=== PATIENT | male | born 1945 | race Caucasian/White ===

== ENCOUNTER 2024-02-10 17:20 | Emergency (ER) | payer OTHER, SELFPAY ==
[2024-02-10 17:21] VITALS: BP 165/89
--- NOTE | 2024-02-10 17:48 | ED.SKININJ ---
HPI-Injury
General
Chief Complaint: Skin Surface Trauma
Source: patient
Exam Limitations: none
Time Seen by Provider: 02/10/24 17:30
Nursing documentation reviewed up to this point in time: agreed with
Travel History
Have you had any contact with someone who has COVID-19?: No
Do you have any symptoms of coronavirus? Fever > 100 degrees, chills, cough, shortness of breath, sore throat, loss of taste or smell, muscle aches, or headache?: No
History of Present Illness-Injury
Is this injury a work related problem?: No
Is pt an associate of [facility]?: No
Initial Injury comments:
Accidentally cut hand while sharpening knife. Sustained laceration to left lateral hand. Injury occurred just [employer]
Past History
Past History
ED Past Medical History: Cancer (Bladder polyp) and Hypercholesterolemia
ED Past Surgical History: Other (Hernia repair)
Social History
Tobacco: Smoker (Cigars)
Alcohol: Occasional
Drug: None
Personal:
Living: with family
Review of Systems
Review of Systems
Allergies reviewed?: Yes
All Other Systems: ROS reviewed and negative except as documented in HPI and ROS
Constitutional: Reports no symptoms
Musculoskeletal: Reports no symptoms
Skin: Reports other (laceration to left lateral hand)
Neurological: Reports no symptoms
Psychiatric: Reports no symptoms
Skin Exam
Laceration
Left Lateral Hand:
Length in cm: 3
Orientation: horizontal
Type of Laceration: simple
Any active bleeding?: low grade venous oozing
Distal skin color and temperature: normal-warm & good color
Normal distal neurovascular exam: Yes
Range of motion: full
Phy Exam
General Physical Exam
General Presentation: well appearing and no apparent distress
General age: appears stated age
General Skin: warm and dry
General Habitus: normal
General Mental: alert
Musculoskeletal Exam
Musculoskeletal Exam: full ROM and neuro vasc intact
Skin Exam
Skin Exam: normal color, warm/dry and no rash
Psychiatric Exam
Psychiatric Exam: normal mood/affect
Course
Orders/Labs/Results
Orders:
Orders
02/10/24 17:52
Tetanus/Diphth/Acelpertussis [Adacel] 0.5 ml IM .ONCE ONE
Vital Signs
Initial and Last Documented VS:
Initial Vital Signs
Temp Pulse Resp BP Pulse Ox
99.1 F 83 16 165/89 98
02/10/24 17:21 02/10/24 17:21 02/10/24 17:21 02/10/24 17:21 02/10/24 17:21
Last Documented Vital Signs
Temp Pulse Resp BP Pulse Ox
99.1 F 83 16 165/89 98
02/10/24 17:21 02/10/24 17:21 02/10/24 17:21 02/10/24 17:21 02/10/24 17:21
Procedures
Laceration Closure
Left Lateral Hand:
Status of Wound: clean
Description of Wound Edges: sharp
Preparation: cleaned with saline
Anesthesia: 1% Lidocaine with epi
Revision/Debridement: routine- no revision
Wound exploration: explored to base- no FB
Type of Closure: single layer closure
Skin Closure Material: 5-0 prolene
*Critical Care Note
Total Time (30-74mins, 75-104mins- exclusive of procedures): Not Applicable
ED Attending Note
-
Portions of this chart may have been created with voice recognition software.� Occasional wrong word or��sound alike� substitutions may have occurred due to the inherent limitations of voice recognition software.
Discharge Plan
Departure
Patient Disposition: Home (Routine Discharge)
Date of Disposition: 02/10/24
Time of Disposition: 17:47
Patient with high blood pressure during this ER visit?: No
Condition: Good
Covid-19: Not Applicable
Discharge Problem:
Hand laceration
Instructions: Laceration Repair With Stitches (DC)
Prescriptions:
No Action
finasteride 5 MG tablet
5 mg PO HS
cholecalciferol (vitamin D3) [Vitamin D3] 125 mcg (5,000 unit) Tablet
125 mcg PO HS
zinc acetate 50 mg (zinc) Capsule
50 mg PO HS
Activity Restrictions/Additional Instructions:
Sutures can be removed in 7-10 days by your family doctor.
Interventions
Interventions:
*Risk Screen - Suicide Last Done: 02/10/24 17:32
*General Assessment Last Done: 02/10/24 17:32
*Neglect/Abuse Screening Last Done: 02/10/24 17:32
ED- Fall Risk Assessment Last Done: 02/10/24 17:33
*ED COVID-19 Vaccine History Last Done: 02/10/24 17:21
ED-Skin Assessment Last Done: 02/10/24 17:33
Discharge Date and Time
Print Language: INDIAN
[2024-02-10] MEDS: ADACEL 0.5 ML IM (17:55)
== END 2024-02-10 18:03 | disposition home or self-care (01) ==
LOC: EMR 17:20
PROVIDERS: EMERGENCY PHYSICIAN Emergency Medicine; FAMILY PHYSICIAN Internal Medicine Geriatric Medicine
DX: S61.412A Laceration without foreign body of left hand, initial encounter (principal); W26.0XXA Contact with knife, initial encounter; Z23 Encounter for immunization; E78.00 Pure hypercholesterolemia, unspecified; F17.290 Nicotine dependence, other tobacco product, uncomplicated; Z88.8 Allergy status to other drugs, medicaments and biological substances; Z85.51 Personal history of malignant neoplasm of bladder; Z85.828 Personal history of other malignant neoplasm of skin; Z87.01 Personal history of pneumonia (recurrent)
CPT/HCPCS: 99282; 90471; 12002; 90715

== ENCOUNTER 2024-05-22 06:27 | Day surgery (SDC) | payer OTHER, SELFPAY ==
[2024-05-20 09:23] LABS: Hematocrit 45.5 % (39.0-52.0); Mean Corp Hgb Conc. 35.2 g/dL (33.0-37.0); Mean Corpuscular Hgb 31.9 pg (27.0-31.0); Mean Corpuscular Volume 90.8 fL (80.0-94.0); Platelet Count 230 10^3/uL (130-400); Red Blood Cell Count 5.01 10^6/uL (4.70-6.10); Red Cell Dist. Width 13.4 % (11.5-14.5); White Blood Cell Count 10.5 10^3/uL (4.8-10.8)
[2024-05-20 09:48] VITALS: BMI 27.8
[2024-05-20 10:02] LABS: Blood Urea Nitrogen 20 mg/dl (9-20); Calcium 9.4 mg/dl (8.4-10.2); Carbon Dioxide 30 mmol/L (22-30); Chloride 102 mmol/L (98-107); Estimated Creatinine Clearance 57 ml/min; Glucose 80 mg/dl (70-99); Potassium 4.6 mmol/L (3.5-5.1); Sodium 141 mmol/L (135-145); eGFR > 60.00
[2024-05-20 10:19] LABS: Urine Albumin Trace (Neg - Trace); Urine Bilirubin 1+ (Negative); Urine Character Clear (Clear); Urine Color Yellow; Urine Glucose Negative (Negative); Urine Ketone Negative (Negative); Urine Leukocyte Negative (Negative); Urine Nitrite Negative (Negative); Urine Occult Blood Negative (Negative); Urine Urobilinogen 1+ (Neg - 1+)
[2024-05-20 11:21] LABS: APTT 30.9 Sec (23.4-35.0); INR 0.97; PT 12.6 Sec (11.4-14.6)
[2024-05-22] VITALS (10 sets, daily range): BP systolic 109–145; BP diastolic 65–92; BMI 27.8
[2024-05-22] MEDS: CYSVIEW KIT 100 MG INTRAVES (09:05)
[2024-05-22] MEDS: SYRINGE NON-PUMP 50 MG IRRIG ×2 (11:10→11:30)
[2024-05-22] MEDS: SYRINGE NON-PUMP 50 ML IRRIG ×2 (11:10→11:30)
[2024-05-22] MEDS: Pyridium 200 MG PO (12:11)
== END 2024-05-22 13:40 | disposition home or self-care (01) ==
LOC: SDS 06:27
PROVIDERS: ATTENDING PHYSICIAN Specialist; FAMILY PHYSICIAN Internal Medicine Geriatric Medicine
PROC: 0TBB8ZZ Excision of Bladder, Via Natural or Artificial Opening Endoscopic (ICD-10-PCS; 2024-05-22)
DX: D30.3 Benign neoplasm of bladder (principal); Z85.51 Personal history of malignant neoplasm of bladder
CPT/HCPCS: 52235; 88307; 36415; 80048; 81003; 85027; 85610; 85730; 93005; A9589; J9201

== ENCOUNTER 2025-07-04 05:23 | Inpatient (IN) | payer OTHER, SELFPAY ==
[2025-07-03 23:34] VITALS: BP 168/108
[2025-07-04] VITALS (11 sets, daily range): BP systolic 110–177; BP diastolic 70–104; BMI 26.8; BMI 28.5
[2025-07-04 00:29] LABS: ALT (SGPT) 25 U/L (0-50); AST (SGOT) 24 U/L (17-59); Albumin 4.3 g/dl (3.5-5.0); Alkaline Phosphatase 72 U/L (38-126); Blood Urea Nitrogen 26 mg/dl (9-20); Calcium 9.1 mg/dl (8.4-10.2); Carbon Dioxide 28 mmol/L (22-30); Chloride 107 mmol/L (98-107); Glucose 132 mg/dl (70-99); Potassium 4.7 mmol/L (3.5-5.1); Sodium 137 mmol/L (135-145); Total Protein 7.4 g/dl (6.3-8.2); eGFR > 60.00
[2025-07-04 00:55] LABS: Hematocrit 47.1 % (39.0-52.0); Hemoglobin 15.6 g/dL (13.0-18.0); Mean Corp Hgb Conc. 33.1 g/dL (33.0-37.0); Mean Corpuscular Volume 95.2 fL (80.0-94.0); Nucleated Red Blood Cells % 0 % (-); Platelet Count 210 10^3/uL (130-400); Red Cell Dist. Width 13.0 % (11.5-14.5)
[2025-07-04 01:14] LABS: Troponin I 0.032 ng/ml
--- NOTE | 2025-07-04 02:36 | ED.GENMED ---
History of Present Illness
General
Chief Complaint: Chest Pain
Source: patient
Exam Limitations: none
Time Seen by Provider: 07/04/25 01:51
Nursing documentation reviewed up to this point in time: agreed with
History of Present Illness
History of Present Illness:
79-year-old male with past medical history as noted presents to the ER for evaluation of chest pain. Patient reports onset at 10 PM while he was at rest and it lasted for about 2 hours and seems to have resolved. He says that it was a pressure
sensation substernal. He says that initially after onset he started to drink some water and pace around and he began belching quite heavily and had some loose stools. He took full dose aspirin. He says that by the time of arrival here it seemed
to have resolved, total duration roughly 2 hours. Currently he is asymptomatic here in the ER. He says he did not have any associated shortness of breath, nausea, vomiting, diaphoresis, dizziness. He says he has never had similar symptoms in the
past. He denies any known history of heart issues. He does make note that tonight he had some Malay food and he says that one of the egg rolls he ate 'tasted funny.'
Past History
Past History
ED Past Medical History: Cancer (Bladder polyp) and Hypercholesterolemia
ED Past Surgical History: Other (Hernia repair)
Social History
Tobacco: Smoker (Cigars)
Alcohol: Occasional
Drug: None
Personal:
Living: with family
Review of Systems
Review of Systems
All Other Systems: ROS reviewed and negative except as documented in HPI and ROS
Constitutional: Denies fever
Respiratory: Denies trouble breathing
Cardiac: Reports chest pain; Denies diaphoresis or palpitations
ABD/GI: Denies abdominal pain, nausea or vomiting
Musculoskeletal: Denies edema, neck pain or back pain
Neurological: Denies dizzy or headache
Phy Exam
Physical Exam
Physical Exam:
General: Awake, alert, oriented x3; no acute distress
Head: Normocephalic, atraumatic
Eyes: Conjunctiva normal, sclera anicteric
Throat: Airway intact, handling secretions
Neck: Trachea midline, supple without meningismus
Lungs: Clear to auscultation bilaterally, no wheezing, rales, rhonchi
Heart: Regular rate and rhythm, no murmurs, gallops, or rubs
Abd: Soft, non distended, nontender
Neuro: Grossly intact
Skin: Warm and dry
Extremities: No edema in extremities, equal pulses in all extremities
Scores
Heart Failure Risk
Heart Failure Risk Score: Not Applicable
Heart Score for Chest Pain Patients
STEMI patient?: No
History: Slightly or Non-Suspicious
ECG: Normal
Age: >/= 65 years
Risk Factors: 1 or 2 Risk Factors
Troponin: </= Normal Limit
Heart Score for Chest Pain Patients: 3
Heart Score Risk: 2.5% MACE over next 6 weeks
Withdrawal Assessment of Alcohol
Withdrawal Assessment Completed?: Not applicable
Course
Orders/Labs/Results
Orders:
Orders
07/03/25 23:40
Electrocardiogram (*1) Urgent
Reason for Study: Other
Other Reason for Exam: Respiratory Distress
Cardiac Monitoring- Treatment ONCE
EKG- Treatment ONCE
IV Insert/Care/Rem.- Treatment PRN
O2 Therapy [RESP] Urgent
Titrate/Wean O2 to maintain O2 sat greater than (%): 93
Special Instructions: TO MAINTAIN CONTINUOUS O2 SATS >/= 93%
Pulse Ox/cont/shift [RESP] Urgent
Quantity: 1
Special Instructions: continuous pulse ox
07/03/25 23:56
Complete Blood Count/With Diff Urgent
Comprehensive Metabolic Panel Urgent
NT-proBNP Urgent
Troponin I Urgent
07/04/25 00:00
CR Chest - 2 Views Urgent
Reason For Exam: respiratory distress
07/04/25 02:36
Electrocardiogram (*1) Urgent
Reason for Study: Chest Pain
EKG- Treatment ONCE
Urinalysis Reflex To Culture Urgent
Date Specimen was Collected: 07/04/25
Time Specimen was Collected: 03:59
07/04/25 03:04
Troponin I Urgent
07/04/25 04:00
PTT Urgent
Comment: Obtain baseline before beginning heparin infusion if not already collected
Heparin 4,000 units IV NOW STA
Heparin 98365 Units/250 ml 25,000 units in 250 ml IV PER PROTOCOL
Weight to be used for heparin protocol in kilograms (kg):: 81
Protocol:: Cardiac Tx/Acute Coronary
PTT Goal Range to be used:: PTT 73 to 111 seconds
Order type:: Initial
INITIAL Infusion Dose (UNITS/KG/hr) & then follow protocol:: 12 units/kg/hr
Infusion Dose in UNITS/hr & then follow protocol (UNITS/hr):: 950
INFUSION RATE in mL/hr & then follow protocol (mL/hr):: 9.5
PTT less than or equal to 64 seconds:: Increase rate by 200 units/hr (+ 2 mL/hr)
PTT 64.1 to 72.9 seconds:: Increase rate by 100 units/hr (+ 1 mL/hr)
PTT 73 to 111 seconds:: Target Range. No change in rate.
PTT 111.1 to 130.9 seconds:: Decrease rate by 100 units/hr (- 1 mL/hr)
PTT 131 to 199.9 seconds:: HOLD for 1 hr. Then decrease rate by 200 units/hr (- 2 mL/hr)
PTT greater than or equal to 200 seconds:: HOLD for 2 hrs & Notify Provider. Then decrease by 200 units/hr (-
2 mL/hr)
Lab follow-up:: Each change, PTT q6h until 2 consecutive are therapeutic. Then PTT
daily.
Pharmacy Request to Place See Dose Instructions IV DIRECTED
Pharmacy Request to Place See Dose Instructions PO NOW STA
Discontinue all Active Warfarin orders?: Yes
Nursing to Place Non Medication Order As Directed
Physician Order: PTT 6 hours after initial start of Heparin infusion
07/04/25 04:01
CARDIOLOGY CONSULT Urgent
Consulting Provider: Yordy Almendarez
Was physician already notified: Yes
Abnormal Lab Results
07/03/25 07/04/25
23:56 03:04
WBC 11.2 H 10^3/uL
(4.8-10.8)
MCV 95.2 H fL
(80.0-94.0)
MCH 31.5 H pg
(27.0-31.0)
Absolute Lymphs (auto) 3.5 H 10^3/uL
(1.2-3.4)
Absolute Monos (auto) 1.2 H 10^3/uL
(0.1-0.6)
Monocytes % 10.8 H %
(1.7-9.3)
BUN 26 H mg/dl
(9-20)
Glucose 132 H mg/dl
(70-99)
Troponin I 0.268 H* D ng/ml
07/03/25 23:56
07/03/25 23:56
Vital Signs
Initial and Last Documented VS:
Initial Vital Signs
Temp Pulse Resp BP Pulse Ox
36.9 C 74 20 168/108 97
07/03/25 23:34 07/03/25 23:34 07/03/25 23:34 07/03/25 23:34 07/03/25 23:34
Last Documented Vital Signs
Temp Pulse Resp BP Pulse Ox
36.9 C 61 13 172/80 99
07/03/25 23:34 07/04/25 04:00 07/04/25 04:00 07/04/25 04:00 07/04/25 04:00
MDM/Problems Addressed
Differential Diagnosis Includes:
GERD/gastritis, ACS, cholelithiasis/cholecystitis, low clinical suspicion for PE or aortic dissection in my judgment no further workup for these diagnoses indicated
MDM/Problems Addressed:
79-year-old male presents for evaluation of substernal chest pain started around 10 PM while at rest lasted for 2 hours was associated with belching and loose stools. Symptoms have since resolved. Hypertensive but otherwise normal vitals.
Physical exam is as above. EKG shows no STEMI. Labs were sent in triage including a CBC and a CMP�he has a marginal leukocytosis unlikely of acute clinical significance. Chemistry shows normal LFTs. His troponin is negative x 1�repeat pending.
Chest x-ray reviewed by me shows no acute pathology. Will continue to monitor pending repeat troponin overall symptoms sound most consistent with GERD.
Repeat troponin significantly uptrending to 0.268. Concern for NSTEMI. Thankfully patient remains chest pain-free, clinically stable on reassessment. Patient took aspirin prehospital. Will start heparin infusion. Discussed with cardiology for
consultation. Discussed with hospitalist for admission.
Chronic conditions affecting care:
Hyperlipidemia
Acute Exacerbation and/or Progression of Chronic Illness: HTN
*Radiology
Radiology exam reviewed: preliminary read by ED provider
*Pulse Oximetry
SaO2: 98
Oxygen Mode of Delivery: Room air
Patient hypoxic: no (98%)
*EKG
Interpreted by ED Provider?: Yes
Heart Rate: 78
Rate: normal
Rhythm: sinus
[place]: normal axis
Interval: normal interval
QRS Pattern: normal QRS
Ischemia: no ischemia
*Critical Care Note
Total Time (30-74mins, 75-104mins- exclusive of procedures): Not Applicable
Data Reviewed
Source: patient and records
Patient Management
Discussion with other providers: Hospitalist (Discussed with hospitalist) and Hoop Puncher (Discussed with bowling alley floors installer)
Escalation/DeEscalation of care consider admission/obs:
Admission indicated
ED Attending Note
-
Portions of this chart may have been created with voice recognition software.� Occasional wrong word or��sound alike� substitutions may have occurred due to the inherent limitations of voice recognition software.
Discharge Plan
Departure
Patient Disposition: Admit
Date of Disposition: 07/04/25
Time of Disposition: 04:07
Admit to doctor: Herbert
Presentation/result/management discussed w/ accepting MD/DO: Hospitalist
Discharge Problem:
Non-ST elevation CO (NSTEMI)
Prescriptions:
No Action
finasteride 5 MG tablet
5 mg PO QPM
cholecalciferol (vitamin D3) [Vitamin D3] 125 mcg (5,000 unit) Tablet
125 mcg PO HS
zinc acetate 50 mg (zinc) Capsule
50 mg PO HS
Interventions
Interventions:
*Risk Screen - Suicide Last Done: 07/03/25 23:34
*General Assessment Last Done: 07/03/25 23:34
*Neglect/Abuse Screening Last Done: 07/03/25 23:34
*ED- Fall Risk Assessment Last Done: 07/03/25 23:34
*ED COVID-19 Vaccine History Last Done: 07/03/25 23:34
*ED Influenza Vaccine History Last Done: 07/03/25 23:34
ED- Cardiac Assessment Last Done: 07/04/25 02:25
Discharge Date and Time
Print Language: POLISH
[2025-07-04 03:50] LABS: Troponin I 0.268 ng/ml
[2025-07-04 04:05] LABS: Urine Character Clear (Clear)
[2025-07-04] MEDS: HEPARIN 4000 UNITS IV (04:32)
[2025-07-04] MEDS: HEPARIN 25000 UNITS/250 ML IV (04:32)
[2025-07-04 04:34] LABS: APTT 29.6 Sec (23.4-35.0)
--- NOTE | 2025-07-04 05:10 | HPS.HSE ---
Family Physician
-
Family Physician: Lukasz Khan
Chief Complaint
-
Chest pain
History of Present Illness
Patient is a 79y M with PMH significant for bladder cancer who presents to ED complaining of chest pain. Patient states that he developed SSCP this evening around 10PM while sitting and watching TV. He initially attributed his symptoms to
indigestion as he had [place] food for dinner and felt gassy / was belching a lot. He had no relief in his pain despite belching and his symptoms persisted for about two hours - at which point he woke his and presented to the ED for further
evaluation.
Patient notes that the pain was substernal and did not radiate. No associated nausea, diaphoresis, SOB, etc.
He took an ASA at home prior to arrival - he is not sure of the dose.
He states that his pain began to improve once he arrived in the ED and at the time of my examination he is entirely pain-free.
He denies any prior h/o similar symptoms. No personal history of [place], CVA, etc.
Medical History
Past Medical History
Past Medical History: Reports Other
Additional Past Medical History:
Bladder Cancer
Skin Cancer
Past Surgical History: Reports Other
Additional Past Surgical History:
TURBT x 7
Cholecystectomy
Hernia Repair
Skin Cancer Excisions
Social History
Tobacco: Smoker (Current every day smoker (1-2 cigars daily))
Alcohol: Occasional
Drug: None
Family History
Family History: Other (PGF: Prostate Cancer )
Allergies / Home Medications
Allergies reflects when Allergies were last updated in [facility].
Home Medications with original date entered in [facility]
Allergy/Medication List:
Allergies
Allergy/AdvReac Type Severity Reaction Status Date / Time
[id number] Reductase AdvReac Myalgias Verified 07/03/25 23:34
Inhibitor (Cutbgnf-[id number]-Ukt
Reductase Inhibitor)
Home Medications
finasteride 5 mg tablet 5 mg PO QPM less prostatic bleeding 02/10/16
Review of Systems
-
History Source: Patient
A 12 point ROS was completed and negative except as noted: Yes
Constitutional: Denies Fever, Fatigue or Chills
Respiratory: Denies Cough or Trouble Breathing
Cardiac: Reports Chest Pain; Denies Diaphoresis, Palpitations or Syncope
Abdomen/GI: Denies Abdominal Pain, Nausea, Vomiting or Diarrhea
: Denies Dysuria or Frequency
Musculoskeletal: Denies Joint Pain or Edema
Neurological: Denies Dizzy or Headache
Psych: Denies Depression or Anxiety
Physical Exam
Vital Signs
Vital Signs
Temp Pulse Resp BP Pulse Ox
98.4 F 60 19 172/80 97
07/03/25 23:34 07/04/25 04:30 07/04/25 04:30 07/04/25 04:00 07/04/25 04:30
Physical Exam
General: Other (79y M in no acute distress.)
HEENT: Moist mucous membranes
Respiratory: Clear; No Wheezes, Rales or Rhonchi
Cardiac: S1/S2 and Regular Rhythm; No Murmur
GI: Soft, Non Tender, Non Distended and Normal Bowel Sounds
Musculoskeletal: No Clubbing, No Cyanosis and No Edema
Neuro: AO x 3
Laboratory Results
-
07/03/25 23:56
07/03/25 23:56
Laboratory Results
APTT 29.6 Sec (23.4-35.0) 07/04/25 04:18
Total Bilirubin 0.5 mg/dl (0.2-1.3) 07/03/25 23:56
AST 24 U/L (17-59) 07/03/25 23:56
ALT 25 U/L (0-50) 07/03/25 23:56
Alkaline Phosphatase 72 U/L (38-126) 07/03/25 23:56
Troponin I 0.268 ng/ml H* D 07/04/25 03:04
Impression/Plan
-
A/P: Patient is a 79y M with PMH significant for bladder cancer who presents to ED complaining of chest pain.
NSTEMI / ACS
- Admit to IVU for further evaluation and treatment.
- EKG with non-specific ST findings - not changed from prior tracings.
- Troponin initially 0.032 and increased to 0.268 on second set.
- Pain free at present.
- ASA daily, IV heparin. Begin Toprol with holding parameters.
- Follow serial troponin to peak and monitor fro any new / recurrent chest pain.
- Cardiology consulted for additional recommendations / probable ischemic evaluation.
- Check lipid panel, A1C, etc.
- Patient reports prior intolerance to statins (GI symptoms?) - likely worth re-trial of this medication.
Elevated BP
- No prior history of HTN.
- ? acute elevation due to pain / stress / etc.
- Begin Toprol as noted above.
- Adjust regimen as needed during stay for adequate control.
Bladder Cancer
BPH
- No current issues / active symptoms.
- s/p multiple TURBT in the past.
- Continue finasteride.
- Bladder scan protocol.
DVT Prophylaxis: On IV Heparin
Code Status: Full
--- NOTE | 2025-07-04 07:46 | W.PN.HOSP.TC ---
Today's Communication/Plan
-
hep gtt, asa
trend troponin to peak
ECHO/cath Mon as per Cardio
Assessment / Plan
Assessment / Plan
Physical Exam
General: No acute distress, appears comfortable
HEENT: Moist mucous membranes
Respiratory: Clear; No Wheezes, Rales or Rhonchi
Cardiac: S1/S2 and Regular Rhythm; No Murmur
GI: Soft, Non Tender, Non Distended and Normal Bowel Sounds
Musculoskeletal: No Clubbing, No Cyanosis and No Edema
Neuro: AO x 3 conversant coherent
Psych: Calm, intact insight/judgement
A/P: Patient is a 79y M with PMH significant for bladder cancer who presents to ED complaining of chest pain.
NSTEMI / ACS
- IVU admit
- EKG with non-specific ST findings - not changed from prior tracings.
- Troponin initially 0.032 and increased to 0.612, trending to peak
- Pain free at present.
- ASA daily, IV heparin. Toprol started with holding parameters.
- Cardiology consult appreciated ECHO/Cath Sunday
Hyperlipidemia
-Cholesterol Lowering diet
-reported hx statin intolerance
-started on rosuvastatin
Elevated BP
Possible HTN vs elevation d/t pain/stress
- Toprol as above
- BP since improved
Bladder Cancer
BPH
- No current issues / active symptoms.
- s/p multiple TURBT in the past.
- Continue finasteride.
- Bladder scan protocol.
DVT Prophylaxis: On IV Heparin
Code Status: Full
I spent a total of 45 minutes with the patient or on the floor. More than 50% of this time involved counseling and coordination of care.
Anticipated Discharge: 24 - 48 hours
Subjective/Interval History
-
Date of Service: July 04, 2025
No acute distress, sitting up comfortably in chair. Overall reports feeling well. Currently Chest pain free. Denies new acute issues at this time.
Objective Data
-
Labs:
Laboratory Results
07/03/25 07/04/25 07/04/25
23:56 04:18 10:30
WBC 11.2 H
Hgb 15.6
Hct 47.1
Plt Count 210
APTT 29.6 Pending
Sodium 137
Potassium 4.7
Chloride 107
Carbon Dioxide 28
BUN 26 H
Creatinine 1.0
Glucose 132 H
Calcium 9.1
Total Bilirubin 0.5
AST 24
ALT 25
Alkaline Phosphatase 72
Vital Signs:
Vital Signs
Temp Pulse Resp BP Pulse Ox
98.4 F 71 22 152/95 97
07/03/25 23:34 07/04/25 06:30 07/04/25 06:30 07/04/25 06:02 07/04/25 06:30
--- NOTE | 2025-07-04 08:31 | CON.CAR ---
Consultation
Consultation Request
Date/Time Consultation Requested: 07/04/2025 at 4 a.m.
Date/Time Consultation Performed: 07/04/2025 at 8:30 AM
Requesting Provider: Dr. Junior Ramos
Performing Provider: Yordy Almendarez
Reason for Consultation: Chest discomfort with positive troponin
Medical History
-
Chief Complaint: Lower substernal discomfort
History of Present Illness:
Mr. 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 He has no
prior cardiac imaging. He is statin intolerant. Last night, after eating a Ukrainian meal, he developed a lower substernal discomfort that waxed and waned and was not clearly exertional. He does not have history of substantial reflux in the past.
He did not have radiation or other associated symptoms. Around midnight or thereafter he presented to the ER where his EKG was unrevealing, his initial troponin was 0.032 and a subsequent troponin was 0.268. Currently he feels well. He has never
had symptoms like this before.
Past Medical History
Past Medical History: Cancer (Bladder cancer treated with mitomycin and TURBT) and Other (Essential tremor)
Past Surgical History: Cholecystectomy, Urological (Multiple TURBTs) and Other (Herniorrhaphy)
Social History
Tobacco: Smoker (2 packs of cigarettes per day till 1977, now with daily cigars)
Alcohol: None
Personal:
Living: With Family
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
Family History
Family History: Reviewed & Not Pertinent
Allergies / Home Medications
Allergy/AdvReac Type Severity Reaction Status Date / Time
Jiwmfle-XVV-AvQ Reductase AdvReac Myalgias Verified 07/03/25 23:34
Inhibitor (Fbnyegc-Rgk-Iwk
Reductase Inhibitor)
�Medication �Instructions �Recorded �Confirmed �Type
finasteride 5 mg tablet 5 mg PO QPM less prostatic bleeding 02/10/16 07/04/25 History
Review of Systems
-
All other systems: Negative unless noted
Physical Exam
Vital Signs
Temp Pulse Resp BP Pulse Ox
36.9 C 71 22 152/95 97
07/03/25 23:34 07/04/25 06:30 07/04/25 06:30 07/04/25 06:02 07/04/25 06:30
Lab Results
07/03/25 23:56
07/03/25 23:56
Troponin I 0.268 ng/ml H* D 07/04/25 03:04
Cjb-L-Xdzdycnutoc Pept 73.5 pg/ml 07/03/25 23:56
Physical Exam
General: Well Developed
HEENT: Normocephalic
Respiratory: Clear
Cardiac: Murmur (Soft systolic murmur at apex)
GI: Soft and Non Tender
Musculoskeletal: No Edema and Other (Pulses, no obvious aneurysm)
Skin: Warm and Dry
Neuro: AO x 3
Psych: Calm
Impression / Plan
-
Impression:
Acute coronary syndrome
Hypercholesterolemia
Statin intolerance
Moderate to severe aortic atherosclerosis without aneurysm by abd CT scan 2015
Transitional cell carcinoma of the bladder
Essential tremor
Suspected mild to moderate mitral regurgitation
Hiatal hernia on imaging?
History of cholecystectomy
Plan:
He presents with symptoms that sound GI in origin. However, his troponin is 0.268 making it likely that he truly has an ACS.
.
His EKG is overall fairly unremarkable.
.
He has a history of aortic atherosclerosis by CT imaging, ongoing tobacco use, and untreated hypercholesterolemia related to statin intolerance.
.
He may have mitral regurgitation we will check an echo on Sunday.
.
We will continue aspirin, heparin, and metoprolol ER. We will try rosuvastatin 20 mg a day with the understanding he will likely require a PCS K9 inhibitor.
.
Reviewed in detail with the patient. Best course of action is probably cardiac catheterization/possible PCI on Sunday. Risks and benefits reviewed. Patient indicated he is in agreement with the plan.
.
Importance of smoking cessation diet exercise, reviewed with patient.
.
We will await the results of cardiac catheterization
Data Reviewed
-
EKG: Tracing Personally Visualized and interpreted (ECG #1: Sinus rhythm, minor ST changes. ECG #2: Sinus rhythm, first-degree AV block, PVCs)
Radiology: Image Personally Visualized and interpreted (Chest x-ray: No active disease, ?hiatal hernia - ?paraesophageal)
Ultrasound: Other (No prior cardiac testing)
Medical Tests (Nuc Med, Echo etc): Report Reviewed by me
Labs: Labs Reviewed by me (White count 11.2, hemoglobin 15.6, platelets 210, BUN and creatinine are 26 and 1.0, potassium is 4.7, proBNP is 73, lipids are pending, troponin is 0.268)
Old Records: Reviewed
[2025-07-04] MEDS: TOPROL XL 12.5 MG PO ×2 (09:26→20:40)
[2025-07-04] MEDS: LOW STRENGTH ASPIRIN 81 MG PO (09:27)
[2025-07-04 09:54] LABS: HDL Cholesterol 33 mg/dl
[2025-07-04 10:26] LABS: LDL Cholesterol, Direct 163 mg/dl
[2025-07-04 10:35] LABS: APTT 55.2 Sec (23.4-35.0)
[2025-07-04 10:45] LABS: Troponin I 0.612 ng/ml
--- NOTE | 2025-07-04 11:09 | PTCARENOTE ---
Pt received this am from the ED. Denies any chest pain or sob. Room air sat 100%. SB - SR, rate in the 50's to 70's. IV heparin infusing as ordered. OOB to the BR, gait steady.
[2025-07-04 14:32] LABS: Glycohemoglobin (HgbA1c) 5.8 % (4.0-5.6)
[2025-07-04 17:07] LABS: APTT 59.4 Sec (23.4-35.0)
[2025-07-04] MEDS: PROSCAR 5 MG PO (17:14)
[2025-07-04] MEDS: CRESTOR 20 MG PO (17:14)
[2025-07-04 17:24] LABS: Troponin I 0.670 ng/ml
[2025-07-04 23:42] LABS: APTT 79.9 Sec (23.4-35.0)
--- NOTE | 2025-07-04 23:48 | PTCARENOTE ---
Pt rec'd at beginning of shift awake,alert with no c/o cp or sob. Sinus fany with pac's on telemetry. Heparin drip at 1350 unit/hr at present awaiting results from ptt drawn recently.
[2025-07-05] VITALS (7 sets, daily range): BP systolic 114–133; BP diastolic 62–73; BMI 28.4
[2025-07-05 00:03] LABS: Troponin I 0.583 ng/ml
[2025-07-05] MEDS: HEPARIN 25000 UNITS/250 ML IV ×2 (01:52→19:41)
[2025-07-05 06:18] LABS: Hematocrit 43.9 % (39.0-52.0); Hemoglobin 14.4 g/dL (13.0-18.0); Mean Corp Hgb Conc. 32.8 g/dL (33.0-37.0); Mean Corpuscular Volume 95.0 fL (80.0-94.0); Platelet Count 184 10^3/uL (130-400); Red Cell Dist. Width 13.2 % (11.5-14.5)
--- NOTE | 2025-07-05 06:20 | PTCARENOTE ---
Sinus fany with pac's, first degree ht block on ecg. No c/o cp this am.
[2025-07-05 06:31] LABS: APTT 91.2 Sec (23.4-35.0)
[2025-07-05 06:51] LABS: Blood Urea Nitrogen 19 mg/dl (9-20); Calcium 8.8 mg/dl (8.4-10.2); Carbon Dioxide 26 mmol/L (22-30); Chloride 110 mmol/L (98-107); Estimated Creatinine Clearance 62 ml/min; Glucose 106 mg/dl (70-99); Magnesium 2.1 mg/dl (1.6-2.3); Potassium 4.4 mmol/L (3.5-5.1); Sodium 139 mmol/L (135-145); eGFR > 60.00
--- NOTE | 2025-07-05 07:07 | W.PN.HOSP.TC ---
Today's Communication/Plan
-
see a/p
Assessment / Plan
Assessment / Plan
Physical Exam
General: No acute distress, appears comfortable
HEENT: Moist mucous membranes
Respiratory: Clear; No Wheezes, Rales or Rhonchi
Cardiac: S1/S2 and Regular Rhythm; No Murmur
GI: Soft, Non Tender, Non Distended and Normal Bowel Sounds
Musculoskeletal: No Clubbing, No Cyanosis and No Edema
Neuro: AO x 3 conversant coherent
Psych: Calm, intact insight/judgement
A/P: Patient is a 79y M with PMH significant for bladder cancer who presents to ED complaining of chest pain.
NSTEMI / ACS
Sinus Bradycardia
- IVU admit
- EKG with non-specific ST findings - not changed from prior tracings.
- Troponin trended to peak 0.670 since trended down
- chest Pain free at present.
- ASA daily, IV heparin. Toprol XL started with holding parameters, reduced from 12.5 mg BID to daily d/t sinus bradycardia
- Cardiology consult appreciated npo after midnight for Cath Sunday
- ECHO Sun as well
Hyperlipidemia
-Cholesterol Lowering diet
-reported hx statin intolerance
-started on rosuvastatin, cont
Elevated BP
Possible HTN vs elevation d/t pain/stress
- Toprol as above
- BP since improved
Bladder Cancer
BPH
- No current issues / active symptoms.
- s/p multiple TURBT in the past.
- Continue finasteride.
- Bladder scan protocol.
DVT Prophylaxis: On IV Heparin
Code Status: Full
Discussed with patient and patient's Radha.
I spent a total of 39 minutes with the patient or on the floor. More than 50% of this time involved counseling and coordination of care.
Anticipated Discharge: 24 - 48 hours
Subjective/Interval History
-
Date of Service: July 05, 2025
No acute distress, sitting up comfortably in chair. Overall reports feeling well. Denies new acute issues at this time. Chest pain free
Objective Data
-
Labs:
Laboratory Results
07/04/25 07/05/25
23:16 05:57
WBC 10.2
Hgb 14.4
Hct 43.9
Plt Count 184
APTT 79.9 H 91.2 H
Sodium 139
Potassium 4.4
Chloride 110 H
Carbon Dioxide 26
BUN 19
Creatinine 1.0
Glucose 106 H
Calcium 8.8
Vital Signs:
Vital Signs
Temp Pulse Resp BP Pulse Ox
98.2 F 45 16 120/71 97
07/05/25 06:57 07/05/25 06:57 07/05/25 06:57 07/05/25 05:50 07/05/25 06:57
I&O
07/04/25 07/05/25 07/06/25
06:59 06:59 06:59
Intake Total 402 / 402
Balance 402 / 402
[2025-07-05] MEDS: LOW STRENGTH ASPIRIN 81 MG PO (07:19)
[2025-07-05] MEDS: TOPROL XL 12.5 MG PO (07:19)
--- NOTE | 2025-07-05 10:31 | W.PN.CARDCBS ---
Today's Communication / Plan
-
Continue aspirin, heparin, metoprolol, and Crestor.
Plan for cardiac cath in AM.
Echo in AM.
N.p.o. after midnight
Impression / Plan
-
Impression:
Acute coronary syndrome
Hypercholesterolemia
Statin intolerance
Moderate to severe aortic atherosclerosis without aneurysm by abd CT scan 2015
Transitional cell carcinoma of the bladder
Essential tremor
Suspected mild to moderate mitral regurgitation
Hiatal hernia on imaging?
History of cholecystectomy
Plan:
His troponin peaked at 0.6. He has no new chest pains. Plan will be for cardiac cath in AM.
.
He has a history of aortic atherosclerosis by CT imaging, ongoing tobacco use, and untreated hypercholesterolemia related to statin intolerance.
.
We will check an echo on Sunday.
.
We will continue aspirin, heparin, and metoprolol ER. We will try rosuvastatin 20 mg a day with the understanding he will likely require a PCS K9 inhibitor.
LDL is elevated at 161.
N.p.o. after midnight.
.
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
Subjective
Date of Service: July 05, 2025
He feels well. No new chest pains. Denies shortness of breath
Objective
Labs:
07/05/25 05:57
07/05/25 05:57
Labs
Hgb 14.4 g/dL (13.0-18.0) 07/05/25 05:57
Hct 43.9 % (39.0-52.0) 07/05/25 05:57
Plt Count 184 10^3/uL (130-400) 07/05/25 05:57
APTT 91.2 Sec (23.4-35.0) H 07/05/25 05:57
Sodium 139 mmol/L (135-145) 07/05/25 05:57
Potassium 4.4 mmol/L (3.5-5.1) 07/05/25 05:57
BUN 19 mg/dl (9-20) 07/05/25 05:57
Creatinine 1.0 mg/dL (0.7-1.3) 07/05/25 05:57
Glucose 106 mg/dl (70-99) H 07/05/25 05:57
Troponins
07/03/25 07/04/25 07/04/25
23:56 03:04 10:12
Troponin I 0.032 0.268 H* D 0.612 H* D
07/04/25 07/04/25 07/04/25
16:46 20:06 23:16
Troponin I 0.670 H* Cancelled 0.583 H*
Vital Signs and I&O:
Vital Signs
Temp Pulse Resp BP Pulse Ox
98.2 F 52 16 122/68 98
07/05/25 06:57 07/05/25 07:00 07/05/25 06:57 07/05/25 06:56 07/05/25 08:00
Vital Signs
Temp Pulse Resp BP Pulse Ox
98.2 F 52 16 122/68 98
07/05/25 06:57 07/05/25 07:00 07/05/25 06:57 07/05/25 06:56 07/05/25 08:00
Intake & Output
07/03/25 07/04/25 07/05/25 07/06/25
06:59 06:59 06:59 06:59
Intake Total 402 / 402
Balance 402 / 402
Physical Exam
Physical Exam
GEN: No distress, awake, Ox3
HEENT: supple, anicteric, mmm
LUNGS: CTA, no wheezes/rales
CV: Reg, S1/S2, 1/6 syst LSB, no gallop
ABD: soft, BS+, NT/ND
EXT: No edema
NEURO: Gross non-focal
SKIN: No rash
--- NOTE | 2025-07-05 12:22 | PTCARENOTE ---
Pt received this am oob ad benito. IV heparin infusing as ordered. Denies any chest pain or sob. Room air sat 99%.
[2025-07-05] MEDS: CRESTOR 20 MG PO (17:39)
[2025-07-05] MEDS: PROSCAR 5 MG PO (17:39)
--- NOTE | 2025-07-05 17:52 | PTCARENOTE ---
Pt ambulating in the hallway with no c/o of any chest pain or sob. Remains in SB - SR, rate in the 50's to 60's.
--- NOTE | 2025-07-05 20:36 | PTCARENOTE ---
Pt AAOx3, ambulatory in room. Denies complaints of pain or shortness of breath. VSS. 98% on RA, pt continues to be on heparin gtt. NPO after midnight for labor mediator.
[2025-07-06] VITALS (13 sets, daily range): BP systolic 97–140; BP diastolic 54–80; BMI 28.5
[2025-07-06 03:59] LABS: Hematocrit 42.7 % (39.0-52.0); Hemoglobin 14.2 g/dL (13.0-18.0); Mean Corp Hgb Conc. 33.3 g/dL (33.0-37.0); Mean Corpuscular Volume 95.7 fL (80.0-94.0); Platelet Count 196 10^3/uL (130-400); Red Cell Dist. Width 13.0 % (11.5-14.5)
[2025-07-06 04:16] LABS: APTT 102.5 Sec (23.4-35.0)
[2025-07-06 04:26] LABS: Blood Urea Nitrogen 21 mg/dl (9-20); Calcium 8.9 mg/dl (8.4-10.2); Carbon Dioxide 25 mmol/L (22-30); Chloride 109 mmol/L (98-107); Estimated Creatinine Clearance 62 ml/min; Glucose 92 mg/dl (70-99); Iron 226 ug/dl (49-181); Magnesium 2.1 mg/dl (1.6-2.3); Potassium 4.1 mmol/L (3.5-5.1); Sodium 140 mmol/L (135-145); eGFR > 60.00
[2025-07-06 04:34] LABS: Total Iron Binding Capacity 230 ug/dl (261-462)
[2025-07-06 05:01] LABS: Ferritin 449.0 ng/ml (17.9-464.0)
[2025-07-06 05:32] LABS: Folate 11.5 ng/ml (2.76-20); Vitamin B12 376 pg/ml (239-931)
--- NOTE | 2025-07-06 08:52 | W.PN.HOSP.TC ---
Today's Communication/Plan
-
NPO for cath today
Assessment / Plan
Assessment / Plan
Physical Exam
General: No acute distress, appears comfortable
HEENT: Moist mucous membranes
Respiratory: Clear; No Wheezes, Rales or Rhonchi
Cardiac: S1/S2 and Regular Rhythm; No Murmur
GI: Soft, Non Tender, Non Distended and Normal Bowel Sounds
Musculoskeletal: No Clubbing, No Cyanosis and No Edema
Neuro: AO x 3 conversant coherent
Psych: Calm, intact insight/judgement
A/P: Patient is a 79y M with PMH significant for bladder cancer who presents to ED complaining of chest pain.
NSTEMI / ACS
Sinus Bradycardia
- IVU admit
- EKG with non-specific ST findings - not changed from prior tracings.
- Troponin trended to peak 0.670 since trended down
- chest Pain free at present.
- ASA daily, IV heparin. Toprol XL started with holding parameters, reduced from 12.5 mg BID to daily d/t sinus bradycardia
- Cardiology consult appreciated npo for Cath today Sunday
- ECHO Sun as well
Hyperlipidemia
-Cholesterol Lowering diet
-reported hx statin intolerance
-started on rosuvastatin, cont
Elevated BP
Possible HTN vs elevation d/t pain/stress
- Toprol as above
- BP since improved
Bladder Cancer
BPH
- No current issues / active symptoms.
- s/p multiple TURBT in the past.
- Continue finasteride.
- Bladder scan protocol.
Elevated Iron levels
-possibly d/t nutrition, patient endorses diet with elevated iron intake certain seafoods
-repeat Iron studies w/ primary care provider in 1 month recommended
DVT Prophylaxis: On IV Heparin
Code Status: Full
Discussed with patient and patient's Radha.
I spent a total of 39 minutes with the patient or on the floor. More than 50% of this time involved counseling and coordination of care.
Anticipated Discharge: 24 - 48 hours
Subjective/Interval History
-
Date of Service: July 06, 2025
no acute distress, appears comfortable a this time. denies new acute issues. Awaiting cath.
Objective Data
-
Labs:
Laboratory Results
07/06/25
02:57
WBC 10.9 H
Hgb 14.2
Hct 42.7
Plt Count 196
APTT 102.5 H
Sodium 140
Potassium 4.1
Chloride 109 H
Carbon Dioxide 25
BUN 21 H
Creatinine 1.0
Glucose 92
Calcium 8.9
Vital Signs:
Vital Signs
Temp Pulse Resp BP Pulse Ox
98.1 F 48 20 140/80 96
07/06/25 06:51 07/06/25 04:00 07/06/25 06:51 07/06/25 03:01 07/06/25 06:51
I&O
07/05/25 07/06/25 07/07/25
06:59 06:59 06:59
Intake Total 402 / 402 480 / 480
Balance 402 / 402 480 / 480
[2025-07-06] MEDS: TOPROL XL 12.5 MG PO (08:57)
[2025-07-06] MEDS: LOW STRENGTH ASPIRIN 81 MG PO (08:57)
--- NOTE | 2025-07-06 09:10 | PTCARENOTE ---
received patient this am, monitor shows NSR, VSS. IV heparin @ 1350units/hr via left forearm without difficulties. patient remains NPO for heart cath today and Echo.
--- NOTE | 2025-07-06 09:48 | CM ---
Addendum entered by Tiny Colon 07/06/25 15:51:
Telephone call to his insurance to check on co-pay for Brilinta 90 mg po bid. His co-pay for ninety day supply is $64.11. Ticagrelor is not on his formulary plan. Telephone call to [facility] to check if they have Brilinta 90 mg po in stock. They
have 120 tablets.
Original Note:
Reviewed chart. Met with and Mrs. Joyner to review discharge plans. He states prior to admission he resides with his spouse in a two story home without any steps to enter. He states he has a full flight of steps to get to bedroom/full
bathroom. He states he has a powder room on the first floor. He states prior to admission he was independent with ambulation and adls. He states he does not have any DME in the home. He states he has a prescription plan and uses [facility].
Medical work-up in progress. The discharge plan is to return home with his spouse when medically stable.
--- NOTE | 2025-07-06 15:48 | PTCARENOTE ---
patient returned from lab nurse with right R band intact, distal pulse palpable. family at bedside.
--- NOTE | 2025-07-06 17:13 | ITS.CL.CATH ---
Ag Service Manager - Catheterization
Cardiac Catheterization
Procedure Report:
LEFT HEART CATHETERIZATION AND CORONARY INTERVENTION
Date of Procedure: July 06, 2025
Referring: Jhonny Noel MD
PROCEDURES:
1. Left heart catheterization, coronary angiogram.
2. Moderate sedation.
3. Successful percutaneous coronary artery intervention of a hazy 90 to 95% OM 2 stenosis with 1 to 2.25 x 12 mm Xience luz point drug-eluting stent, postdilated using a 2.5 x 8 mm NC balloon at high pressures with an excellent angiographic result.
4. Functional physiologic testing with IFR of proximal RCA.
INDICATION: NSTEMI
ACCESS: Right radial artery, 6Fr. sheath, under US guidance.
HEMODYNAMICS : (mmHg)
AO (s/d) : 123/62
LVEDP : 18
No significant gradient across the aortic valve to suggest aortic stenosis.
CORONARY FINDINGS
Dominance: Right
Left Main Trunk (LMT): Large caliber vessel that gives rise to the LAD and LCx branches and is free of angiographic disease.
Left Anterior Descending Artery (LAD): Large caliber vessel that gives off 2 major diagonal branches as it courses along the anterior inter-ventricular groove before wrapping around the cardiac apex. D2 has ostial 50% stenosis.
Left Circumflex Artery (LCx): Large caliber vessel that gives off 2 major obtuse marginal (OM) branches as it courses along the atrio-ventricular (AV) groove. OM 2 has ostial 40 to 50% stenosis and a hazy 90 to 95% stenosis in the proximal portion
which is thought to be the culprit of presenting ACS and was intervened upon as noted below.
Right Coronary Artery (RCA): Large caliber dominant vessel that gives rise to the posterior descending artery (RPDA) and postero-lateral ventricular (RPLV) branches distally. Proximal RCA has tubular 50 to 60% stenosis which is IFR negative at
0.97.
CORONARY INTERVENTION: The left coronary artery was selectively engaged using a 6 [place] EBU 3.5 guide catheter. Additional heparin was given to maintain a therapeutic ACT throughout the case. A 0.014 run-through coronary wire was carefully
navigated across the OM 2 lesion into the distal vessel. The lesion was predilated using a 2.0 x 12 mm semicompliant balloon with full expansion and subsequently stented using a 2.25 x 12 mm Xience luz point drug-eluting stent, postdilated using a
2.5 x 8 mm NC balloon at high pressures with an excellent angiographic result. Patient was loaded with 180 mg of Brilinta at the end of the case. He tolerated the procedure well with no acute complications.
HEMODYNAMIC ASSESSMENT OF THE PROXIMAL RCA WITH A [employer] MoovO OMNI WIRE: The origin of the RCA was cannulated with a 6 Fr JR4 guide catheter. Intravenous heparin was administered and the ACT was followed during the procedure. Two hundred micrograms of
intracoronary nitroglycerin was given through the guide catheter. A [employer] Omni wire was advanced to the guide catheter tip and normalized just outside the guide catheter. The Omni wire was then carefully manipulated across the stenosis in the
proximal RCA with the iFR above the ischemic threshold serially measuring 0.97. The Omni wire was then pulled back to the guide catheter where the Pd/Pa measured 1.0 confirming no baseline drift in pressure readings.
SEDATION: 67 minutes of procedural sedation was utilized. IV Midazolam and IV Fentanyl were administered. An independent er medical technician was present to assist with and help manage the patient's level of consciousness and physiologic status.
Closure Device: There were no immediate intra-procedural complications. The sheath was pulled in the laboratory worker and a vascular-band applied to the right wrist for radial artery hemostasis using the patent hemostasis technique.
CONCLUSIONS
1. Successful percutaneous coronary artery intervention of a hazy 90 to 95% OM 2 stenosis with 1 to 2.25 x 12 mm Xience luz point drug-eluting stent, postdilated using a 2.5 x 8 mm NC balloon at high pressures with an excellent angiographic result.
2. Proximal RCA has tubular 50 to 60% stenosis which is IFR negative at 0.97.
3. D2 has ostial 50% stenosis.
4. LVEDP of 18 mmHg.
RECOMMENDATIONS
1. Wean radial band per protocol. Monitor right hand perfusion and for bleeding from the radial site following removal of the vascular-band following trans-radial access.
2. Continue aggressive medical therapy and risk factor modification for secondary CAD prevention.
3. Continue ASA 81 mg daily for life.
4. Continue Ticagrelor for at least 12 months of uninterrupted dual anti-platelet therapy given drug-eluting stent (ROBERTO) implantation to mitigate the risk of stent thrombosis. This is not to be stopped for any reason without the guidance of a
mri tech.
5. Hydrate with normal saline to mitigate the risk of contrast-induced acute kidney injury.
6. Referral for outpatient cardiac rehab.
Johanne Johnson MD, [facility], [facility]
Copy to: Jhonny Noel MD and Yordy Almendarez MD
[2025-07-06] MEDS: CRESTOR 20 MG PO (17:37)
[2025-07-06] MEDS: PROSCAR 5 MG PO (17:37)
--- NOTE | 2025-07-06 18:09 | PTCARENOTE ---
echo being completed at bedside.
--- NOTE | 2025-07-06 23:11 | PTCARENOTE ---
Assumed care at 1900. TR band removed. Gauze and tegaderm applied. Site clean and dry. Patient educated on right arm restrictions. Patient verbalize understanding. Patient denies any chest pain or shortness of breath. Patient sinus fany on tele.
Patient independent in room.
Patient's right radial site assessed at 1930. Oozing noted. Manual pressure held. New gauze and tegaderm applied. Site remains clean and dry. Patient aware of plan of care. Call prado within reach.
[2025-07-07 03:12] VITALS: BP 132/80
[2025-07-07 03:16] VITALS: BMI 28.6
[2025-07-07 03:31] LABS: Hematocrit 42.5 % (39.0-52.0); Hemoglobin 13.8 g/dL (13.0-18.0); Mean Corp Hgb Conc. 32.5 g/dL (33.0-37.0); Mean Corpuscular Volume 95.5 fL (80.0-94.0); Platelet Count 181 10^3/uL (130-400); Red Cell Dist. Width 12.9 % (11.5-14.5)
[2025-07-07 03:51] LABS: Blood Urea Nitrogen 22 mg/dl (9-20); Calcium 9.0 mg/dl (8.4-10.2); Carbon Dioxide 26 mmol/L (22-30); Chloride 110 mmol/L (98-107); Estimated Creatinine Clearance 56 ml/min; Glucose 93 mg/dl (70-99); Magnesium 2.2 mg/dl (1.6-2.3); Potassium 4.2 mmol/L (3.5-5.1); Sodium 138 mmol/L (135-145); eGFR > 60.00
[2025-07-07 07:11] VITALS: BP 122/109
[2025-07-07 07:12] VITALS: BP 119/68
[2025-07-07] MEDS: TOPROL XL 12.5 MG PO (07:56)
[2025-07-07] MEDS: LOW STRENGTH ASPIRIN 81 MG PO (07:56)
[2025-07-07] MEDS: BRILINTA 90 MG PO (07:56)
--- NOTE | 2025-07-07 08:12 | W.PN.HOSP.TC ---
Today's Communication/Plan
-
Discharge
Assessment / Plan
Assessment / Plan
Physical Exam
General: No acute distress, appears comfortable
HEENT: Moist mucous membranes
Respiratory: Clear; No Wheezes, Rales or Rhonchi
Cardiac: S1/S2 and Regular Rhythm; No Murmur
GI: Soft, Non Tender, Non Distended and Normal Bowel Sounds
Musculoskeletal: No Clubbing, No Cyanosis and No Edema
Neuro: AO x 3 conversant coherent
Psych: Calm, intact insight/judgement
A/P: Patient is a 79y M with PMH significant for bladder cancer who presents to ED complaining of chest pain.
NSTEMI / ACS
Sinus Bradycardia
- IVU admit
- EKG with non-specific ST findings - not changed from prior tracings.
- Troponin trended to peak 0.670 since trended down
- chest Pain free at present.
- ASA daily, IV heparin. Toprol XL started with holding parameters, reduced from 12.5 mg BID to daily d/t sinus bradycardia
- Cardiology consult appreciated Cath performed Sunday07/07/25 successful PCI ROBERTO 90-95% OM 2 stenosis
- ECHO appreciated EF 60-65%
Hyperlipidemia
-Cholesterol Lowering diet
-reported hx statin intolerance
-started on rosuvastatin, cont
Elevated BP
Possible HTN vs elevation d/t pain/stress
- Toprol as above
- BP since improved
Bladder Cancer
BPH
- No current issues / active symptoms.
- s/p multiple TURBT in the past.
- Continue finasteride.
- Bladder scan protocol.
Elevated Iron levels
-possibly d/t nutrition, patient endorses diet with elevated iron intake certain seafoods
-repeat Iron studies w/ primary care provider in 1 month recommended
Code Status: Full
Medically stable for discharge home with outpatient follow up recommendations.
Discussed with patient and patient's Radha.
Total Time Preparing Discharge __40 minutes including examination of the patient, summary of the hospital stay, instructions for continuing care to all relevant caregivers; and preparation of discharge records, prescriptions, and referral
forms if necessary.
Anticipated Discharge: Today
Subjective/Interval History
-
Date of Service: July 07, 2025
No acute distress, overall reports feeling well, denies new acute issues at this time. Eager to go home.
Objective Data
-
Labs:
Laboratory Results
07/07/25
03:07
WBC 10.8
Hgb 13.8
Hct 42.5
Plt Count 181
Sodium 138
Potassium 4.2
Chloride 110 H
Carbon Dioxide 26
BUN 22 H
Creatinine 1.1
Glucose 93
Calcium 9.0
Vital Signs:
Vital Signs
Temp Pulse Resp BP Pulse Ox
97.7 F 55 18 119/68 99
07/07/25 07:12 07/07/25 07:56 07/07/25 07:12 07/07/25 07:56 07/07/25 07:12
I&O
07/06/25 07/07/25 07/08/25
06:59 06:59 06:59
Intake Total 480 / 480 1202.5 / 1202.5
Balance 480 / 480 1202.5 / 1202.5
--- NOTE | 2025-07-07 08:45 | PTCARENOTE ---
received patient this am, monitor shows SB with a first degree, VSS. right radial dsg. D/I, distal pulse palpable. patient would like to be discharged to home today.
--- NOTE | 2025-07-07 09:10 | CM ---
Reviewed chart. Met with Mr. Joyner to review discharge plans. We reviewed co-pay for Brilinta 90 mg po bid. He is agreeable to the co-pay. He states he is feeling well and maybe able to go home soon. Prior to admission he resides with his spouse
in a two story home without any steps to enter. He has a full flight of steps to get to bedroom/full bathroom. He has a powder room on the first floor. Prior to admission he was independent with ambulation and adls. He does not have any DME in the
home. He has a prescription plan and uses [facility]. Medical work-up in progress. The discharge plan is to return home with his spouse when medically stable.
--- NOTE | 2025-07-07 10:19 | W.PN.CARDCBS ---
Addendum entered and electronically signed by Claudette Wolff DO 07/07/25 10:59:
I saw and examined the patient.
The [employer] Technical Developer's note was reviewed and I agree with the note.
Comment: Patient seen and examined ambulating around room. Overall he is feeling well and denies chest pain or pressure. No shortness of breath or palpitations. No lightheadedness. We discussed presenting symptoms, study results/findings of
cardiac catheterization and cardiac plan moving forward. All questions were answered.
General: No acute distress, AAOX3
Neck: Negative JVD
Heart: Regular, positive S1/S2, No murmur
Lungs: CTA b/l, negative wheezes/rales/rhonchi
Abd: Positive BS, NT/ND, neg rebound/rigidity/guarding
Ext: No edema. Right radial site intact.
Neuro: nonfocal
Plan:
Non-STEMI with peak troponin 0.67 on 07/04/2025
- Status post cardiac catheterization 07/06/2025 finding of right dominant system. Successful PCI to a hazy 90-95% OM 2 stenosis with 2.25 X12 millimeter Xience luz point drug-eluting stent. Patient has residual 50 to 60% tubular stenosis of the
proximal RCA which was IFR negative at 0.97 and 50% ostial stenosis of D2.
- 2D echocardiogram personally reviewed with normal biventricular size and systolic function and no regional wall motion abnormalities. Patient does have aortic sclerosis but no hemodynamically significant valve pathology.
- Plan for dual antiplatelet therapy for 1 year: Aspirin 81 mg daily/Brilinta 90 mg twice daily
-Presenting LDL 163 mg/dL triglycerides 730 but may have been a nonfasting specimen? Reported prior history of myalgias on statin therapy. Will continue Crestor 20 mg daily and monitor for recurrent symptoms. As an outpatient can consider PCSK9
inhibitors. Goal LDL ideally 55-60 mg/dL. Will need to repeat lipid profile in 3 months on new therapy
- Goal normotension: Continue metoprolol succinate 12.5 mg daily, new medication.
- Reviewed activity restrictions following cardiac catheterization and wrist precautions.
- Cardiac rehab
-Tobacco/cigar smoking cessation strongly advised and discussed quit plan. I am happy to hear the patient is motivated and states that he has quit smoking as a result of this hospitalization
- Outpatient cardiac follow-up to be arranged
PAD- reports no symptoms.
-Aggressive medical therapy
- CT abdomen pelvis from 2016: Moderate to severe atherosclerotic disease of the aorta. The aorta has maximum AP diameter of 2.3 cm. Focal narrowing of the luminal diameter of the origin of the left common iliac artery, followed by a small focal
area of aneurysmal dilation, short-axis diameter of 1.7 cm. Right common iliac artery has short-axis diameter of 1.4 cm, within the normal range of less than 1.5 cm.
- Recommend repeat vascular studies of iliac arteries and evaluation of PAD as an outpatient
History of transitional cell carcinoma of the bladder�No active issues with normal renal function. On day of discharge creatinine 1.1.
Prediabetes with hemoglobin A1c this admission 5.8%. Low carbohydrate/low glycemic index cardiac healthy diet strongly advised. Would repeat in 3 months with lipid profile. Goal normoglycemia
Elevated iron levels�being addressed by hospitalist with plan for outpatient repeat studies and further evaluation if needed by his primary care physician
Stable from a cardiovascular standpoint for discharge home today.
Cardiac follow-up to be arranged
Original Note:
Today's Communication / Plan
-
Continue aspirin, Brilinta, Toprol, Crestor
Cardiac rehab
OP cardiac follow up arranged
Impression / Plan
-
Impression:
Presentation with chest pain
NSTEMI status post OM2 PCI and residual 50 to 60% proximal RCA stenosis, IFR negative 07/06/25
Hypercholesterolemia
Statin intolerance
Moderate to severe aortic atherosclerosis without aneurysm by abd CT scan 2015
Transitional cell carcinoma of the bladder
Essential tremor
Suspected mild to moderate mitral regurgitation
Hiatal hernia on imaging?
History of cholecystectomy
Echo 07/06/2025: Pending
Plan:
- He presented with chest pain and ruled in for NSTEMI with peak troponin of 0.67
- Status post cardiac catheterization 07/06 resulting in OM 2 PCI and residual 50 to 60% proximal RCA stenosis, IFR negative
- Echo pending
- Continue aspirin, Brilinta
- In sinus bradycardia with occasional PVCs on review of telemetry overnight. Continue low-dose Toprol
- LDL 163. Continue Crestor 20 mg every afternoon. Of note he has a history of myalgias on statin therapy. Will need to consider for PCSK9 inhibitor as outpatient
- Reviewed activity restrictions/limitations post cath
- Cardiac rehab
- Outpatient cardiac follow-up arranged
- Okay for discharge to home today
- Discussed with nursing. Discussed with hospitalist
Progress Note - Family Law Specialist
Subjective
Date of Service: July 07, 2025
No issues overnight. Feeling well. Eager for discharge
Objective
Labs:
07/07/25 03:07
07/07/25 03:07
Labs
Hgb 13.8 g/dL (13.0-18.0) 07/07/25 03:07
Hct 42.5 % (39.0-52.0) 07/07/25 03:07
Plt Count 181 10^3/uL (130-400) 07/07/25 03:07
APTT 102.5 Sec (23.4-35.0) H 07/06/25 02:57
Sodium 138 mmol/L (135-145) 07/07/25 03:07
Potassium 4.2 mmol/L (3.5-5.1) 07/07/25 03:07
BUN 22 mg/dl (9-20) H 07/07/25 03:07
Creatinine 1.1 mg/dL (0.7-1.3) 07/07/25 03:07
Glucose 93 mg/dl (70-99) 07/07/25 03:07
Troponins
07/04/25 07/04/25 07/04/25
10:12 16:46 20:06
Troponin I 0.612 H* D 0.670 H* Cancelled
07/04/25
23:16
Troponin I 0.583 H*
Vital Signs and I&O:
Vital Signs
Temp Pulse Resp BP Pulse Ox
97.7 F 55 18 119/68 97
07/07/25 07:12 07/07/25 07:56 07/07/25 07:12 07/07/25 07:56 07/07/25 08:30
Vital Signs
Temp Pulse Resp BP Pulse Ox
97.7 F 55 18 119/68 97
07/07/25 07:12 07/07/25 07:56 07/07/25 07:12 07/07/25 07:56 07/07/25 08:30
Intake & Output
07/05/25 07/06/25 07/07/25 07/08/25
07:59 07:59 07:59 07:59
Intake Total 402 / 402 480 / 480 1202.5 / 1202.5
Balance 402 / 402 480 / 480 1202.5 / 1202.5
Physical Exam
Physical Exam
GEN: No distress, awake, alert, oriented x3
HEENT: supple, anicteric, mmm, EOMI
LUNGS: CTA bilaterally, no wheezes/rales
CV: Reg, S1/S2, no murmur
ABD: soft, BS+, NT/ND
EXT: No cyanosis, clubbing, edema
NEURO: Gross non-focal
SKIN: Warm, pink, dry. No rash. Right wrist site clean dry and intact
[2025-07-07 11:54] VITALS: BP 124/75
--- NOTE | 2025-07-07 13:29 | W.DCSUMMARY ---
Discharge Summary
Discharge Data
Date of Admission: 07/04/25
Date of Discharge: 07/07/25
-
Pending Results: No
Hospital Course
79M hx Bladder cancer p/w chest pain NSTEMI/ACS/ Sinus Bradycardia. IVU admit, EKG with non-specific ST findings - not changed from prior tracings. Troponin trended to peak 0.670 since trended down. Chest Pain since resolved. ASA daily, IV
heparin gtt. Toprol XL started with holding parameters, reduced from 12.5 mg BID to daily d/t sinus bradycardia. Cardiology consult appreciated Cath performed Sunday07/07/25 successful PCI ROBERTO 90-95% OM 2 stenosis, hep gtt switched to Brilinta to
continue with aspirin DAPT for 1 year. ECHO appreciated EF 60-65. Hyperlipidemia, Cholesterol Lowering diet, reported hx statin intolerance, started on rosuvastatin, cont. Elevated BP, possible HTN vs elevation d/t pain/stress. Toprol as above,
BP since improved. Elevated Iron levels, possibly d/t nutrition, patient endorses diet with elevated iron intake certain seafoods, repeat Iron studies w/ primary care provider in 1 month recommended. Medically stable, patient was discharged home
with outpatient follow up recommendations.
Discharge Plan
-
Patient Disposition: Home (Routine Discharge)
Discharge Diagnosis/Procedures: NSTEMI, s/p angioplasty and stent to Obtuse Marginal artery
Hyperlipidemia
Prediabetes
Elevated Iron levels possibly due to nutrition
Condition: Good
Diet: Low Cholesterol, 2 Gram Sodium and Other diet
Additional Diets: Avoid foods high in iron content for now.
Activity: No strenuous activity
Additional Activity: no heavy lifting until re-evaluated in cardiology office
Driving Restrictions: No driving for 24 hours
Bathing Restrictions: None
Blood Work: Repeat Iron studies with primary care provider in 1 month of discharge.
Repeat HgbA1c and Lipid panel with primary care provider or Cardiology in 3 months of discharge
Other Services: Cardiac Rehab
Activity Restrictions/Additional Instructions:
Please follow up with primary care provider in 1 week of discharge and keep your appointment with Cardiology.
Aspirin and Brilinta have been prescribed for recent cardiac stent placement due to NSTEMI. Aspirin is available over the counter. To keep your stent patent, continue with dual antiplatelet therapy (Aspirin and Brilinta) for 1 year. Follow up
with cardiology or primary care provider for refills as necessary.
Metoprolol has been prescribed for coronary artery disease and hypertension.
Rosuvastatin has been prescribed for hyperlipidemia and to further reduce your risks of coronary artery disease.
Please take medications as prescribed/recommended and follow up with primary care provider and/or other healthcare provider involved in your care for refills and/or further adjustment to your medication regimen as necessary.
Stand Alone Forms: DC Instructions- Cath/EP Lab
Referrals:
[facility] [Outside]
Referral Note: Cardiac Rehab Orientation appointment and� First Exercise appointment is on 07/24/25 AT 8:30.
The Cardiac Rehab gym [facility] the [facility] Please wear comfortable sneakers.
Claribel Espinoza PA-C [Specified Professional Personl, Cardiology] - 07/29/25 8:20 am
Referral Note: You have a cardiology follow-up at the [facility]. Please call with questions
Lukasz Khan MD [Family Provider, Internal Medicine] - in one week
Additional Discharge Medication Instructions: STOP SMOKING!
Prescriptions:
New
ticagrelor 90 mg Tablet
90 mg PO BID Qty: 60 11RF
aspirin 81 mg Tablet,Chewable
81 mg PO DAILY Qty: 30 0RF
rosuvastatin 20 mg Tablet
20 mg PO QPM Qty: 30 0RF
metoprolol succinate 25 mg Tablet Extended Release 24 Hr
12.5 mg PO DAILY Qty: 30 0RF
Continued
finasteride 5 MG tablet
5 mg PO QPM
Discharge Orders:
Discharge Patient (As Directed); Ordered 07/07/25
Ordered By: Leila Sampson
Care Plan Goals
Care Plan Goals:
Problem: Readiness for enhanced knowledge related to diagnosis and treatment plan
Goal: Understand your diagnosis and treatment plan needs, including medications if applicable.
Instructions: Know your diagnosis, underlying causes and treatment plan options, including medications if applicable. Consult with your health care team to learn about your diagnosis and treatment plan, including medications if applicable.
Discharge Date and Time
Discharge Date/Time: 07/07/25 14:16
Print Language: SWEDISH
--- NOTE | 2025-07-07 14:04 | PTCARENOTE ---
D/C instructions given to patient , verbalizes understanding. INT DE/C'd, telemetry D/C'd, personal belongings packed and sent home with patient. patient refused flu vaccine at this time. D/C to home via wc accompanied by staff.
== END 2025-07-07 14:16 | disposition home or self-care (01) | DRG 322 ==
LOC: IVU 05:23
PROVIDERS: Emergency Medicine; Internal Medicine Interventional Cardiology; ADMITTING PHYSICIAN Hospitalist; ATTENDING PHYSICIAN Internal Medicine; CONSULT PHYSICIAN Internal Medicine Cardiovascular Disease; EMERGENCY PHYSICIAN Emergency Medicine; FAMILY PHYSICIAN Internal Medicine Geriatric Medicine
PROC: B2111ZZ Fluoroscopy of Multiple Coronary Arteries using Low Osmolar Contrast (ICD-10-PCS; 2025-07-06)
PROC: 4A033BC Measurement of Arterial Pressure, Coronary, Percutaneous Approach (ICD-10-PCS; 2025-07-06)
PROC: 4A023N7 Measurement of Cardiac Sampling and Pressure, Left Heart, Percutaneous Approach (ICD-10-PCS; 2025-07-06)
PROC: 027034Z Dilation of Coronary Artery, One Artery with Drug-eluting Intraluminal Device, Percutaneous Approach (ICD-10-PCS; 2025-07-06)
DX: I21.4 Non-ST elevation (NSTEMI) myocardial infarction (principal); N40.0 Benign prostatic hyperplasia without lower urinary tract symptoms; R00.1 Bradycardia, unspecified; R03.0 Elevated blood-pressure reading, without diagnosis of hypertension; C67.9 Malignant neoplasm of bladder, unspecified; I70.0 Atherosclerosis of aorta; R79.0 Abnormal level of blood mineral; F17.210 Nicotine dependence, cigarettes, uncomplicated; F17.290 Nicotine dependence, other tobacco product, uncomplicated; E78.00 Pure hypercholesterolemia, unspecified; G25.0 Essential tremor; R73.03 Prediabetes; Z79.899 Other long term (current) drug therapy; Z79.82 Long term (current) use of aspirin; I25.10 Atherosclerotic heart disease of native coronary artery without angina pectoris
CPT/HCPCS: 71046; 80048; 80053; 80061; 81003; 82607; 82728; 82746; 83036; 83540; 83550; 83721; 83735; 83880; 84100; 84443; 84484; 85025; 85027; 85347; 85730; 93005; 93306; 93458; 93799; 94760; 96365; 96366; 99152; 99153; 99285; C1725; C1769; C1874; C1894; C9600; Q9967

== ENCOUNTER 2025-08-12 08:44 | Outpatient (RCR) | payer OTHER, SELFPAY | END 2025-08-12 23:59 | disposition home or self-care (01) | LOC: CRHB 08:44 | PROVIDERS: ATTENDING PHYSICIAN Internal Medicine Cardiovascular Disease; FAMILY PHYSICIAN Internal Medicine Geriatric Medicine | DX: I25.10 Atherosclerotic heart disease of native coronary artery without angina pectoris (principal); Z95.5 Presence of coronary angioplasty implant and graft; I25.2 Old myocardial infarction; I21.4 Non-ST elevation (NSTEMI) myocardial infarction | CPT/HCPCS: G0422; G0423 ==

== ENCOUNTER 2025-09-16 08:45 | Outpatient (RCR) | payer OTHER, SELFPAY | END 2025-09-16 23:59 | disposition home or self-care (01) | LOC: CRHB 08:45 | PROVIDERS: ATTENDING PHYSICIAN Internal Medicine Cardiovascular Disease; FAMILY PHYSICIAN Internal Medicine Geriatric Medicine | DX: I25.10 Atherosclerotic heart disease of native coronary artery without angina pectoris (principal); I25.2 Old myocardial infarction; Z95.5 Presence of coronary angioplasty implant and graft; I21.4 Non-ST elevation (NSTEMI) myocardial infarction | CPT/HCPCS: G0422; G0423 ==